=== PATIENT | male | born 1975 | race Caucasian/White ===

== ENCOUNTER → 2017-02-17 | Outpatient (CLI) | payer BC, OTHER ==
[~2017-02-17] VITALS: Ht 167.6 cm; Wt 95.9 kg
[~2017-02-17] MED LIST: ACCUPRIL40 MG; BACLOFEN 10MG T10 M1 PO; BACLOFEN 10MG T10 MG PO; BACTRIM DS TAB1 EACH PO; CARISOPRODOL 3350 MG; CARISOPRODOL 3350 MG PO; CATAPRES-TTS 10.1 M2 TD; CATAPRES0.2 M1 PO; CLONAZEPAM 1 MG1 M1 PO; DEPO-TESTO100 MG/1 M IM; DILAUDID 4 MG TA4 M1 PO; DILAUDID 4 MG TA4 MG PO; FENTANYL PA50 MCG/HR TRANSDERM; FENTANYL PATCH75 MCG TRANSDERM; IBUPROFEN 200200 M1 PO; IMITREX 50 MG T50 M1 PO; IMITREX 50 MG T50 MG PO; KEFLEX500 MG PO; LINZESS145 MCG PO; METHADONE HCL 110 M1 PO; NABUMETONE 750750 M1 PO; NORVASC5 MG PO; OXYCODONE HCL10 MG PO; OXYCODONE HCL15 MG; OXYCODONE HCL15 MG PO; OXYCONTIN10 M1; OXYCONTIN10 M1 PO; PERCOCET 10-321 EACH; PERCOCET 10-321 EACH PO; PHENERGAN 25 MG25 M1 PO; RELAFEN750 MG PO; RESTORIL15 MG PO; TIZANIDINE HCL4 MG PO; TOPAMAX 25 MG T25 M1 PO; XANAX 0.5 MG0.5 M1 PO; ZOFRAN ODT8 MG PO; ZOFRAN8 MG PO; hydromorphone INTRATHECA; oxycodone PO
--- NOTE | ~2017-02-17 | HPC ---
[facility] [address] [place] [address] PAIN MANAGEMENT CONSULTATION Name: EARNESTINE ROLAND Room #: REG [facility] MSoo.#: [id number] Admission: 02/17/17 Attend Phys: George Vance DO Discharge: Date of : 77 Report #: [id number] THIS REPORT FOR: //name// CC: Kavin Vance The patient is a 41-year-old gentleman, well known to the pain clinic, being treated for symptomatic lumbar radiculopathy status post decompressive laminectomy, requiring complex medication management. He had an anterior and posterior fusion in the distant past. He had had intrathecal pump for quite some time, it was replaced at end of better life, unfortunately subsequent staphylococcus infection resulted in explantation of the pump. He has been managed on weaning dose of opiates since that time. Presently, the patient presents to pain clinic today, appears to be in some bit of withdrawal. He has some acute and chronic nausea. Concerned about the patient's functional status, at last visit 12/02/2016, he had slipped at home (10/21/2016), was found to have post-concussive syndrome. At that last visit, we continued methadone 10 mg b.i.d., enabling the patient to take a third tablet every other day; # 75 methadone 10 mg tablets for 30 days, continued hydromorphone 4 mg b.i.d. for breakthrough pain. Continued clonidine 0.1 mg b.i.d. and we weaned Soma. I did start clonazepam at bedtime. He returns to pain clinic today, again does appear to have some opiate withdrawal symptoms, he is nauseous and a little diaphoretic. He was given Zofran 4 mg ODT at 11:37. By 11:51, his nausea was much better. He was seen for prolonged visit today from 11:18 through 11:45. Greater than 50% of this 25+ plus minute visit was spent counseling the patient. He is desirous moving forward with spinal cord stimulator trial. He did have a psychological evaluation back in July (08/19/2016) by Alyssa Valera, PhD. She found him to be an appropriate candidate for surgery. The patient has chronic pain in his back, hips and legs. He is desirous of any modality that may help and enable him to be a little more functional. He continues to be active around the house, he mows the yard, does housekeeping chores. 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 PHYSICAL EXAMINATION: Shows a 41-year-old gentleman, BMI is 34.1 kg/m2. Again, he is a little tachycardic and diaphoretic today. Blood pressure is elevated 136/101, pulse 107, and respirations are 18. Subjective nausea. Pupils are constricted, compatible with opiate use. There is no nystagmus at this time. Diffuse tenderness across the low back, limited range of motion to lumbar flexion, lower extremity strength is symmetric. Positive straight leg raise bilaterally. [facility] [address] [place] [address] PAIN MANAGEMENT CONSULTATION Name: EARNESTINE ROLAND Room #: BENITO Millan#: [id number] Admission: 02/17/17 Attend Phys: George Vance DO Discharge: Date of : 77 Report #: [id number] We reviewed the fact that opiate medications are being used to provide analgesia adequate to support activities of daily living, not attempting to achieve a specific pain score on the 0-10 Visual Analog Scale. The current opiate medications are providing sufficient analgesia to allow the patient to participate in activities of daily living. The patient is not exhibiting any aberrant behavior suggestive of drug diversion. The patient is not having any adverse reactions to medications. The patient is not suffering from daytime somnolence or mental acuity changes. The patient is managing opiate-induced constipation with appropriate bbkc-mik-gavibst agents and dietary considerations. The patient was counseled on concern for caution with operating a motor vehicle while using opiate medications. A physical exam was performed and the patient's functional status was evaluated. All patients with back pain were advised against the bed rest greater than 4 days and were advised to return to normal activities. Pain score assessment was noted and the treatment plan was reviewed with the patient. All current medications, both prescribed and OTC were reviewed and reconciled on the electronic medical record. Tobacco screening was accomplished and smoking cessation was advised when indicated. BMI was noted and diet/exercise modification was recommended for all patients following outside normal parameters. I reviewed with the patient today their responsibilities to safeguard prescription medications, reviewed their responsibility to utilize medications only as prescribed by the physician. They are to seek and receive pain medications only from 1 physician group ( [facility]). They are to use 1 pharmacy and keep the clinic informed if they change pharmacies. Their responsibilities include making followup visits in a timely fashion and to avoid abrupt discontinuation of medication usage. Their responsibilities further include bringing their medications (bottles from the pharmacy with residual pills) to the visit for possible confirmation of pill counts and the patient understands it is their responsibility to submit to random drug screens to ensure both that the medications prescribed are present, and that no other controlled substances are present. All prescriptions provided today were generated electronically. ASSESSMENT: Lumbar radiculopathy status post decompressive laminectomy, chronic pain syndrome requiring complex medication management. RECOMMENDATION: Continue methadone 10 mg, we will increase the dose to t.i.d. and discontinue p.r.n. hydromorphone. Continue clonidine 0.2 mg t.i.d. and clonazepam 1 mg at bedtime. I have taken the liberty of writing for 2 months of current medication. We will try to move forward with high frequency spinal cord stimulator. We discussed this at length today. I think the patient is an excellent candidate, [facility] [address] [place] [address] PAIN MANAGEMENT CONSULTATION Name: EARNESTINE ROLAND Room #: REG CL Monty#: [id number] Admission: 02/17/17 Attend Phys: George Vance DO Discharge: Date of : 77 Report #: [id number] he has failed 2 back surgeries. He has weaned down from the high dose opiate he was receiving via intrathecal pump. He would like to trial the stimulator, if this affords more function, we will move on to implant. If; however, spinal cord stimulator does not afford improvement in functional status, we may consider replacing the intrathecal pump. The patient again is desirous of not using higher dose oral narcotics. We will seek authorization for a spinal cord stimulator trial with the [employer] high frequency stimulator at earliest possible date. <ELECTRONICALLY SIGNED> By: George Vance DO 02/18/17 0925 1215 [id number] George Vance, DO /nt
[2017-02-17 11:04] VITALS: BP 136/101
== END ==
LOC: PAIN 07:57
DX: M54.16 Radiculopathy, lumbar region (principal); G89.29 Other chronic pain; I10 Essential (primary) hypertension; Z87.891 Personal history of nicotine dependence

== ENCOUNTER → 2017-04-15 | Outpatient (CLI) | payer BC, OTHER ==
[~2017-04-15] VITALS: Ht 167.6 cm; Wt 93.0 kg
[~2017-04-15] MED LIST changes: +TOPROL XL100 MG PO
--- NOTE | ~2017-04-15 | HPC ---
[facility] [address] [place] [address] PAIN MANAGEMENT CONSULTATION Name: EARNESTINE ROLAND Room #: REG [facility] Rafy.#: [id number] Admission: 04/15/17 Attend Phys: George Vance DO Discharge: Date of : 77 Report #: [id number] THIS REPORT FOR: //name// CC: Kavin Vance The patient is a 41-year-old gentleman being treated for lumbar radiculopathy status post decompressive laminectomy, chronic pain syndrome requiring complex medication management and some ongoing headaches. Last visit was 02/17/2017. Urine drug screen at that time was positive for prescribed medications. The patient has been continued on methadone 10 mg increased to t.i.d., we discontinued p.r.n. hydromorphone due to lack of efficacy. Continued clonazepam 1 mg at bedtime. We planned on moving forward with a spinal cord stimulator trial (high frequency Nevro). Unfortunately, paper work was not completed at this time, so we will postpone that intervention. We reviewed the fact that opiate medications are being used to provide analgesia adequate to support activities of daily living, not attempting to achieve a specific pain score on the 0-10 Visual Analog Scale. The current opiate medications are providing sufficient analgesia to allow the patient to participate in activities of daily living. The patient is not exhibiting any aberrant behavior suggestive of drug diversion. The patient is not having any adverse reactions to medications. The patient is not suffering from daytime somnolence or mental acuity changes. The patient is managing opiate-induced constipation with appropriate vprf-hti-iktpife agents and dietary considerations. The patient was counseled on concern for caution with operating a motor vehicle while using opiate medications. A physical exam was performed and the patient's functional status was evaluated. All patients with back pain were advised against the bed rest greater than 4 days and were advised to return to normal activities. Pain score assessment was noted and the treatment plan was reviewed with the patient. All current medications, both prescribed and OTC were reviewed and reconciled on the electronic medical record. Tobacco screening was accomplished and smoking cessation was advised when indicated. BMI was noted and diet/exercise modification was recommended for all patients following outside normal parameters. I reviewed with the patient today their responsibilities to safeguard prescription medications, reviewed their responsibility to utilize medications only as prescribed by the physician. They are to seek and receive pain medications only from 1 physician group ( [facility]). They are to use 1 pharmacy and keep the clinic informed if they change pharmacies. Their responsibilities include making followup visits in a timely fashion and to avoid abrupt discontinuation of medication usage. Their responsibilities further include bringing their medications (bottles from the pharmacy with residual pills) to the visit for possible confirmation of pill counts and the patient understands it is their responsibility to submit to random [place] [address] PAIN MANAGEMENT CONSULTATION Name: EARNESTINE ROLAND Room #: REG RY Millan#: [id number] Admission: 04/15/17 Attend Phys: George Vance DO Discharge: Date of : 77 Report #: [id number] ensure both that the medications prescribed are present, and that no other controlled substances are present. All prescriptions provided today were generated electronically. Returns to pain clinic today noting that while medications are providing sufficient analgesia to keep his pain to a "dull roar", is rating an 8 on a 0-10 visual analog scale, he has been having increasing migraine headaches. Again, reviewing the record, he has been hypertensive for quite some time, blood pressure today is 130/100, pulse is 114. Typically, he has been both tachycardic and hypertensive at the last 6 visits. He does take amlodipine daily. PHYSICAL EXAMINATION: GENERAL: Shows a 41-year-old gentleman, BMI is 33.1 kilograms per meter squared. VITAL SIGNS: Blood pressure is elevated 130/100, pulse is 114, respirations 18. NEUROLOGIC: Cranial nerves 2-12 grossly intact. HEENT: Pupils equal and reactive to light and accommodation. Extraocular muscles are intact. Does have some mild photophobia. NECK: Cervical range of motion is full, no nuchal rigidity is noted. MUSCULOSKELETAL: Rises from chair using armrest. Gait is antalgic. Diffuse tenderness across the low back. Lumbar flexion is limited. He does have a lumbar fusion. ASSESSMENT: Lumbar radiculopathy status post decompressive laminectomy, chronic pain syndrome requiring complex medication management and ongoing headaches hypertension. RECOMMENDATION: After discussion with the patient today about therapeutic option, we have elected to start propranolol 100 mg extended release at bedtime. This is a scored tablet, if this affords any hypotension I told him he can cut that tablet in half. I did renew his methadone 10 mg t.i.d., I have taken the liberty of writing for 3 months of current medication. Clonazepam 0.5 at bedtime. Clonidine 0.2 t.i.d. We will continue Sumatriptan 50 mg, max 2 tablets in 24 hours for headache, dispensed 12 tablets with 2 refills. Discharged in good and stable condition. <ELECTRONICALLY SIGNED> By: George Vance DO 04/22/17 1606 1001 1129 George Vance, DO /nt
[2017-04-15 09:38] VITALS: BP 130/100
== END | disposition home or self-care (01) ==
LOC: PAIN 06:44
DX: M54.16 Radiculopathy, lumbar region (principal); G89.4 Chronic pain syndrome; I10 Essential (primary) hypertension; Z98.890 Other specified postprocedural states; G43.909 Migraine, unspecified, not intractable, without status migrainosus; Z87.891 Personal history of nicotine dependence

== ENCOUNTER → 2017-05-12 | Outpatient (CLI) | payer BC, OTHER ==
[~2017-05-12] VITALS: Ht 170.2 cm; Wt 92.5 kg
[2017-05-12 07:15] VITALS: BP 158/97
== END | disposition home or self-care (01) ==
LOC: PAIN 06:53
DX: M54.16 Radiculopathy, lumbar region (principal); G89.29 Other chronic pain; M96.1 Postlaminectomy syndrome, not elsewhere classified; G43.909 Migraine, unspecified, not intractable, without status migrainosus; F11.20 Opioid dependence, uncomplicated; Z98.890 Other specified postprocedural states; Z87.891 Personal history of nicotine dependence; Z88.8 Allergy status to other drugs, medicaments and biological substances; Z79.899 Other long term (current) drug therapy

== ENCOUNTER → 2017-05-19 | Outpatient (CLI) | payer BC, OTHER ==
[~2017-05-19] VITALS: Ht 170.2 cm; Wt 96.1 kg
[~2017-05-19] MED LIST changes: +TESTOSTERO200 MG/1 M IM
--- NOTE | ~2017-05-19 | HPC ---
[facility] [address] [place] [address] PAIN MANAGEMENT CONSULTATION Name: EARNESTINE ROLAND [facility]: [facility] [id number] Admission: 05/19/17 Attend Phys: George Vance DO Discharge: Date of : 77 Report #: [id number] THIS REPORT FOR: //name// CC: Kavin Vance DATE OF SERVICE: 05/19/2017 The patient is a 41-year-old gentleman who is long treated for symptomatic lumbar radiculopathy status post decompressive laminectomy with neuropathic pain component. He had done well with an intrathecal pump for quite some time and ultimately when the pump was replaced he developed an infection, and had to have the pump removed. He has been stable recently on opiate analgesics but is desirous of getting off of opiates and being more functional. To this end, we move forward with spinal cord stimulator trial 05/12/2017. He returns to pain clinic today noting greater than 50% improvement of baseline pain and he notes he would very much like to move forward with implantation. It is of note that we had trialed this low-voltage [employer] stimulator years ago even before his intrathecal pump. Had some efficacy, but he did not like the paresthesia. He very much approves of the high frequency Nevro stimulator with its minimal stim paresthesia. Today, he was taken to the fluoroscopy suite. The leads appear to remain intact. They are covering all of the T8, T9, T10 vertebral bodies. Lead was removed, area was cleansed, Band-Aids applied. The patient was monitored for an appropriate period of time. We will continue his baseline medication unchanged. We will have him follow up with Dr. Marlon Carlton for consideration for spinal cord stimulator implant. This information was relayed to the [facility] as well. The patient's baseline narcotic continues at methadone 10 mg t.i.d. with hydromorphone 4 mg 1 tablet 2-3 times a day, limit 75 tablets for 30 days. <ELECTRONICALLY SIGNED> By: George Vance DO 05/23/17 1427 1631 1806 George Vance DO /nt
[2017-05-19 10:56] VITALS: BP 128/70
== END | disposition home or self-care (01) ==
LOC: PAIN 07:44
DX: M54.16 Radiculopathy, lumbar region (principal); Z98.890 Other specified postprocedural states; G89.29 Other chronic pain; G43.909 Migraine, unspecified, not intractable, without status migrainosus; Z87.891 Personal history of nicotine dependence; Z88.8 Allergy status to other drugs, medicaments and biological substances; Z79.899 Other long term (current) drug therapy

== ENCOUNTER → 2017-10-31 | Outpatient (CLI) | payer BC, OTHER ==
[~2017-10-31] VITALS: Ht 170.2 cm; Wt 98.6 kg
[~2017-10-31] MED LIST changes: +ASPIRIN81 M2 PO; +LIPITOR 20 MG T20 M1 PO; +LISINOPRIL-HCT1 EACH PO; +ZANAFLEX4 MG PO
--- NOTE | ~2017-10-31 | HPC ---
[facility] [address] [place] [address] PAIN MANAGEMENT CONSULTATION Name: EARNESTINE ROLAND Room #: REG Pj Hillman.#: [id number] Admission: 10/31/17 Attend Phys: George Vance DO Discharge: Date of : 77 Report #: [id number] THIS REPORT FOR: //name// CC: Kavin Vance DATE OF SERVICE: 10/31/2017 HISTORY OF PRESENT ILLNESS: The patient is a pleasant 42-year-old gentleman well known to the pain clinic, being treated for lumbar radiculopathy status post decompressive laminectomy requiring high risk complex medication management. Comorbidity includes migraine headaches. The patient had an intrathecal pump, which had to be explanted due to infection when the pump was replaced. He has been stable on baseline narcotic including methadone 10 mg t.i.d., weaned off hydromorphone, use of sumatriptan 50 mg up to 9 tablets in 30 days for chronic migraine headaches. Clonazepam for insomnia. Spinal cord stimulator trial was effective. He has an appointment to see Dr. Jon Carranza next Tuesday, 11/08, for discussion about implantation. Today, we did talk about Botox injections for migraine headaches. At next visit, we will give the patient contact information for Dr. Edwards and Dr. Helena Shukla for consideration for injections. Today, we did talk about trialing nortriptyline 25 mg at bedtime along with his metoprolol extended release 100 mg b.i.d., which has been efficacious in slowing frequency and intensity of his headaches down, though he still has headaches 25 out of 30 days. PHYSICAL EXAMINATION: GENERAL: Shows a 42-year-old gentleman, BMI is 34 kilograms per meter squared. VITAL SIGNS: Blood pressure is 130/84, pulse 81, respirations 16. NEUROLOGIC: Alert and oriented to person, place and time, judged to be a reasonable historian. MUSCULOSKELETAL: Rises from chair using the armrest. Diffuse axial back pain. Modestly limited range of motion. Lower extremity strength is preserved. The patient tells me that he really has not been hunting this year because sitting significantly exacerbates the pain. Otherwise, he has continued to participate in activities of daily living. We reviewed the fact that opiate medications are being used to provide analgesia adequate to support activities of daily living, not attempting to achieve a specific pain score on the 0-10 Visual Analog Scale. The current opiate medications are providing sufficient analgesia to allow the patient to participate in activities of daily living. The patient is not exhibiting any [address] [address] PAIN MANAGEMENT CONSULTATION Name: EARNESTINE ROLAND Room #: REG [facility].#: [id number] Admission: 10/31/17 Attend Phys: George Vance DO Discharge: Date of : 77 Report #: [id number] aberrant behavior suggestive of drug diversion. The patient is not having any adverse reactions to medications. The patient is not suffering from daytime somnolence or mental acuity changes. The patient is managing opiate-induced constipation with appropriate gmjh-llm-dunmzzm agents and dietary considerations. The patient was counseled on concern for caution with operating a motor vehicle while using opiate medications. A physical exam was performed and the patient's functional status was evaluated. All patients with back pain were advised against the bed rest greater than 4 days and were advised to return to normal activities. Pain score assessment was noted and the treatment plan was reviewed with the patient. All current medications, both prescribed and OTC were reviewed and reconciled on the electronic medical record. Tobacco screening was accomplished and smoking cessation was advised when indicated. BMI was noted and diet/exercise modification was recommended for all patients following outside normal parameters. I reviewed with the patient today their responsibilities to safeguard prescription medications, reviewed their responsibility to utilize medications only as prescribed by the physician. They are to seek and receive pain medications only from 1 physician group ( [facility]). They are to use 1 pharmacy and keep the clinic informed if they change pharmacies. Their responsibilities include making followup visits in a timely fashion and to avoid abrupt discontinuation of medication usage. Their responsibilities further include bringing their medications (bottles from the pharmacy with residual pills) to the visit for possible confirmation of pill counts and the patient understands it is their responsibility to submit to random drug screens to ensure both that the medications prescribed are present, and that no other controlled substances are present. All prescriptions provided today were generated electronically. ASSESSMENT: Lumbar radiculopathy status post decompressive laminectomy requiring high risk complex medication management, comorbidity of migraine headaches. RECOMMENDATIONS: 1. Follow up with Dr. Jon Carranza for spinal cord stimulator implant. 2. Trial nortriptyline along with metoprolol 100 mg b.i.d. for migraine prophylaxis. 3. If this does not afford adequate efficacy, we will refer for consideration for Botox injections. [facility] [address] [place] [address] PAIN MANAGEMENT CONSULTATION Name: EARNESTINE ROLAND Room #: REG RY Millan#: [id number] Admission: 10/31/17 Attend Phys: George Vance DO Discharge: Date of : 79 Report #: [id number] 4. Continue baseline narcotic unchanged, methadone 10 mg t.i.d. We have discontinued hydromorphone. <ELECTRONICALLY SIGNED> By: George Vance DO 11/02/17 0721 1221 2214 George Vance DO /nt
[2017-10-31 10:55] VITALS: BP 130/84
== END ==
LOC: PAIN 06:54
DX: M54.16 Radiculopathy, lumbar region (principal); G43.909 Migraine, unspecified, not intractable, without status migrainosus; Z98.890 Other specified postprocedural states; Z79.899 Other long term (current) drug therapy

== ENCOUNTER → 2017-12-29 | Outpatient (CLI) | payer BC, OTHER ==
[~2017-12-29] VITALS: Ht 170.2 cm; Wt 98.6 kg
--- NOTE | ~2017-12-29 | HPC ---
[facility] [address] [place] [address] PAIN MANAGEMENT CONSULTATION Name: LUANEARNESTINE Hurt Room #: REG [facility]#: [id number] Admission: 12/29/17 Attend Phys: George Vance DO Discharge: Date of : 79 Report #: [id number] THIS REPORT FOR: //name// CC: EVERTON Vance DATE OF SERVICE: 12/29/2017 The patient is a 42-year-old gentleman long known to the Pain Clinic. He has symptomatic lumbar radiculopathy status post decompressive laminectomy. He had done well with an intrathecal pump. Unfortunately, when the pump was replaced, he developed infection and had the pump explanted. It has now been about a year. Last visit on 10/31/2017, patient noted he had been relatively stable with methadone 10 mg t.i.d., had weaned off of hydromorphone. Was using sumatriptan for some chronic migraine headaches. Discussion at that visit, we noted he was having headaches more than 15 out of 30 days. We elected to start the patient on nortriptyline at bedtime as headache prophylaxis. He does take beta sweetie (metoprolol 100 mg XR) daily. He is taking this both for migraine prophylaxis as well as hypertension. He also takes amlodipine 5 mg for hypertension. The patient returns to Pain Clinic today noting headaches remain problematic. Axial back pain remains problematic. He had successful spinal cord stimulator trial and he is waiting to move forward with spinal cord stimulator implant with Dr. Jon Carranza next month. In the interval since we last saw him, he has had left shoulder arthroscopy. This was with Villa Velazquez MD. Apparently, shoulder arthroscopy found no muscles tear, sounds like they did do some debridement of bone spurs. He has a followup appointment next week with Dr. Velazquez and they are planning on starting physical therapy at that time. The patient tells me he does have a new general internal medicine doctor physician, Dr. Sharif. Reviewed current health issues. The patient does continue to use tobacco products (he uses a tobacco chew). Counseled regarding nicotine use and axial back pain. MEDICATION: List was reconciled. REVIEW OF SYSTEMS: Was gone over. Pertinent positives include migraine headaches, hypertension, anxiety and insomnia, chronic axial back pain, hypotestosteronism and some opiate-induced constipation, treated with Linzess. Remaining review of systems is not contributory. [address] [address] PAIN MANAGEMENT CONSULTATION Name: EARNESTINE ROLAND Room #: REG CLI [facility]#: [id number] Admission: 12/29/17 Attend Phys: George Vance DO Discharge: Date of : 79 Report #: [id number] PHYSICAL EXAMINATION: Shows 42-year-old gentleman, moderately obese, BMI is 34 kg/m2, blood pressure is elevated today at 145/91, pulse 109, respiration 16. Cervical range of motion is adequate. Has limited range of motion in left shoulder, status post the recent arthroscopy. Notes subjective headaches continue to be problematic. Rises from chair using armrest. Gait is modestly antalgic. Has diffuse tenderness across the low back. He tells me he has fallen one time since I last saw him. He states his back occasionally "locks up." He states he has been having a lot of trouble with spasms at night and this seems to be associated with increasing frequency of headaches. Lower extremity strength is otherwise preserved. Risk assessment tool was deployed. He scores in the low risk category. Functional assessment tool score is 46/70. Again, he is using a chew tobacco product. Subjective pain score at this time is 7 on a VAS. We reviewed the fact that opiate medications are being used to provide analgesia adequate to support activities of daily living, not attempting to achieve a specific pain score on the 0-10 Visual Analog Scale. The current opiate medications are providing sufficient analgesia to allow the patient to participate in activities of daily living. The patient is not exhibiting any aberrant behavior suggestive of drug diversion. The patient is not having any adverse reactions to medications. The patient is not suffering from daytime somnolence or mental acuity changes. The patient is managing opiate-induced constipation with appropriate [id number]-phzrvjy agents and dietary considerations. The patient was counseled on concern for caution with operating a motor vehicle while using opiate medications. A physical exam was performed and the patient's functional status was evaluated. All patients with back pain were advised against the bed rest greater than 4 days and were advised to return to normal activities. Pain score assessment was noted and the treatment plan was reviewed with the patient. All current medications, both prescribed and OTC were reviewed and reconciled on the electronic medical record. Tobacco screening was accomplished and smoking cessation was advised when indicated. BMI was noted and diet/exercise modification was recommended for all patients following outside normal parameters. I reviewed with the patient today their responsibilities to safeguard prescription medications, reviewed their responsibility to utilize medications only as prescribed by the physician. They are to seek and receive pain medications only from 1 physician group ([facility]). They are to use 1 pharmacy and keep the clinic informed if they change pharmacies. Their responsibilities include making followup visits in a timely fashion and to avoid abrupt discontinuation of medication usage. Their responsibilities further include bringing their medications (bottles from the pharmacy with residual pills) to the visit for possible confirmation of pill counts and the patient [address] [place] [address] PAIN MANAGEMENT CONSULTATION Name: EARNESTINE ROLAND Licha [id number] Admission: 12/29/17 Attend Phys: George Vance DO Discharge: Date of : 79 Report #: [id number] understands it is their responsibility to submit to random drug screens to ensure both that the medications prescribed are present, and that no other controlled substances are present. All prescriptions provided today were generated electronically. ASSESSMENT: 1. Chronic axial back pain status post lumbar decompressive laminectomy requiring complex medication management, stable on methadone 10 mg t.i.d. 2. Axial back pain with increasing spasm. We will trial tizanidine 4 mg 1-2 at bedtime. 3. Chronic migraine headaches. Continue metoprolol 100 mg daily. Continue sumatriptan 50 mg, dispensed 9 tablets, directions one tablet onset of headache, may repeat in 2 hours, max of 2 tablets in 24 hours. 4. Continue clonazepam 1 mg at bedtime for insomnia, limit 20 tablets for 30 days, to be used on a nondaily basis. The patient was seen for prolonged visit. We did get a buccal swab today. No aberrant behaviors suggestive of drug diversion, simply complying with opiate consent to treat contract. The patient was discharged in good and stable condition. Follow up in 2 months for reevaluation. Greater than 50% of the 25-minute visit was spent counseling the patient. <ELECTRONICALLY SIGNED> By: George Vance DO 12/30/17 [id number] George Vance DO /nt
[2017-12-29 10:41] VITALS: BP 145/91
== END ==
LOC: PAIN 06:39
DX: M54.16 Radiculopathy, lumbar region (principal); G43.909 Migraine, unspecified, not intractable, without status migrainosus

== ENCOUNTER → 2018-04-17 | Outpatient (CLI) | payer BC, OTHER ==
[~2018-04-17] VITALS: Ht 170.2 cm; Wt 95.1 kg
--- NOTE | ~2018-04-17 | HPC ---
[facility] [address] [place] [address] PAIN MANAGEMENT CONSULTATION Name: EARNESTINE ROLAND Room #: REG [facility] Monty#: [id number] Admission: 04/17/18 Attend Phys: George Vance DO Discharge: Date of : 79 Report #: [id number] THIS REPORT FOR: //name// CC: JON Vance DO HISTORY OF PRESENT ILLNESS: The patient is a 42-year-old gentleman being treated for lumbar radiculopathy and chronic pain syndrome requiring complex medication management. He had a spinal cord stimulator trial with good efficacy nearly a year ago. Due to some comorbidities including cellulitis in left lower extremity, implantation of same had been postponed. Fortunately, he now has had the stimulator implanted. He returns to pain clinic today. Dr. Jon Carranza implanted the spinal cord stimulator and patient reports good efficacy. He notes that overall his muscle spasm has improved, though still has some ongoing axial and radicular pain. He rates his pain 6-7 on a VAS, generally controlled with methadone 10 mg t.i.d. Prior the patient had intrathecal pump in place, delivering hydromorphone and clonidine. Dose was up to about 2.4 mg of hydromorphone and 240 mcg of clonidine. Unfortunately, the pump reached the end of its life cycle and had to be replaced. Shortly after this occurred in early 2015 he developed a subsequent dramatic infection, systemic sepsis and had to have the pump explanted. He was started on oral agents at that time. The patient returns to pain clinic today. I had 25+ minute visit spent reviewing the patient's medical history, current issues and plans for future therapy. He notes functional assessment is impacted with pain, rates it at 41/70. To his credit, he finally has stopped using nicotine products or at least is in the process of trying to wean oral chew. This had been discussed at length at prior visits. Today, he notes with the spinal cord stimulator in place he feels overall better, notes that muscle spasm is better, though still has a bit of a problem. He has fallen once since I last saw him, this was prior to the spinal cord stimulator implant. Notes he was on the stairs, had acute back spasm and lost his balance. Since the stimulator has been implanted he has had no subsequent falls. PHYSICAL EXAMINATION: Shows a 42-year-old gentleman, moderately obese, 5 feet 7 inches tall with a weight of 209 pounds, yielding a BMI of 32.8 kilograms per meter squared. Blood pressure remains modestly elevated at 142/104, pulse 109, respirations 16. He has been hypertensive at most of his visits. We have encouraged him to follow up with his human resources hr generalist physician regarding same. [address] [address] PAIN MANAGEMENT CONSULTATION Name: EARNESTINE ROLAND Room #: REG [facility]#: [id number] Admission: 04/17/18 Attend Phys: George Vance DO Discharge: Date of : 79 Report #: [id number] He is on Norvasc for hypertension and metoprolol as well (metoprolol was actually started for migraine prophylaxis). He is alert and oriented to person, place and time, judged to be a reasonable historian. He rises from chair easily. Gait is tandem. Diffuse axial back pain. Lower extremity strength is preserved. Well-healed surgical scar compatible with spinal cord stimulator implant. Lumbar flexion is modestly limited. I reviewed the patient's medical history, ongoing migraine headaches despite prophylactic agents including metoprolol and Topamax, has failed abortient agents including Imitrex and butalbital. Has headaches greater than 15/30 days (actually closer to 20 to 25/30 days). I do think he would be an excellent candidate for Botox injections and I have referred him to Neurology for same. Remaining comorbidities include dyslipidemia for which he takes atorvastatin, hypotestosteronism for which he uses testosterone cypionate injection every 2 weeks, chronic insomnia for which he uses clonazepam 1 mg I prescribed 20 tablets for 30 days and encouraged nondaily usage, lisinopril, hydrochlorothiazide for hypertension along with metoprolol 100 mg extended release both for hypertension and migraine prophylaxis. The patient does use methadone 10 mg t.i.d. and tizanidine 4 mg 1 to 2 at bedtime for spasm and somewhat for a soporific affect. We reviewed the opiate consent to treat contract with the patient, which was signed on 09/08/2017. The patient related that Dr. Carranza had offered him Percocet for postoperative pain and the patient had elected to return that prescription. ASSESSMENT: Chronic axial back pain status post lumbar decompressive laminectomy with ongoing radicular pain, spinal cord stimulator in place to help with neuropathic pain component. History of migraine headaches on multiple agents having failed to abort and s and to prophylactic agents. Headaches greater than 15/30 days. Comorbidity includes modest obesity with a BMI of 32.8 kilograms per meter squared, hypertension on multiple medications, nicotine habituation in a patient who is weaning his oral tobacco "chew." RECOMMENDATIONS: 1. I had a long discussion with the patient today about therapeutic options. I have taken the liberty of writing for 2 months of his current methadone 10 mg t.i.d. and tizanidine 4 mg 1 to 2 at bedtime. We renewed metoprolol, Imitrex, clonazepam 20 tablets for 30 days. 2. We will have follow up with Dr. Manas Carranza for post-surgical evaluation of spinal cord stimulator. He may benefit from retrialing an intrathecal pump. Again, he had an excellent relief with this in the past, did well for nearly 10 years with the pump. Given that it has now been greater than 2 years since the [facility] [address] [place] [address] PAIN MANAGEMENT CONSULTATION Name: EARNESTINE ROLAND Room #: REG CLI Monty#: [id number] Admission: 04/17/18 Attend Phys: George Vance DO Discharge: Date of : 79 Report #: [id number] infection following the pump replacement and given that he now has a functioning spinal cord stimulator placed, it may be an excellent time to retrial an intrathecal pump. Hopefully, we can wean off of all oral agents. We will defer to Dr. Carranza regarding that management. I am leaving the practice area. The patient can follow with Dr. Jon Carranza if he wants to move forward with an intrathecal pump placement and further management. If he elects not to move forward with intrathecal pump, he can follow up with one of my [facility]. Discharged in good and stable condition today after a 25-minute visit spent reviewing therapeutic options and concerns. <ELECTRONICALLY SIGNED> By: George Vance DO 04/17/18 [id number] George Vance DO /uzma
[2018-04-17 09:15] VITALS: BP 142/104
== END ==
LOC: PAIN 06:38
DX: M54.16 Radiculopathy, lumbar region (principal); G89.4 Chronic pain syndrome